=== PATIENT | female | born 1955 | race Caucasian/White ===

== ENCOUNTER → 2019-11-07 | Outpatient (CLI) | payer OTHER ==
--- NOTE | 2019-11-07 11:53 | DIREP ---
PROCEDURE:CT ABDOMEN/PELVIS W/ CONTRAST COMPARISON:None. INDICATIONS:RUQ ABD TENDERNESS TECHNIQUE:Axial images were created through the abdomen and pelvis with non-ionic intravenous contrast material. Oral contrast was administered. Sagittal and coronal reconstructions were performed from source images. FINDINGS: LUNG BASES:Normal. No visible pulmonary or pleural disease. LIVER:Normal. No significant liver lesions are identified. BILIARY:Normal. No visible dilatation or calcification. PANCREAS:Normal. No lesion, fluid collection, ductal dilatation, or atrophy. SPLEEN:Normal. No enlargement or focal lesion. ADRENALS:Normal. No mass or enlargement. URINARY TRACT:Posterior left renal cortical simple cyst measuring 1.9 cm. AORTA/VASCULAR:Normal. No aneurysm. RETROPERITONEUM:Normal. No mass or adenopathy. BOWEL/MESENTERY:Normal appendix. Moderate stool in the colon. ABDOMINAL WALL:Normal. No mass or hernia. PELVIC ORGANS:Normal. No visible mass. Pelvic organs appropriate for patient age. BONES:Normal for age. No bony lesion or acute fracture. OTHER:Negative. CONCLUSION: 1. Moderate stool in the colon, correlate for constipation. 2. Left renal simple cyst. Dictated by: Ras Mera M.D. on 11/07/2019 at 11:43 AM
== END | disposition home or self-care (01) ==
LOC: RAD 09:44
PROVIDERS: ATTEND Family Medicine
DX: R10.811 Right upper quadrant abdominal tenderness (principal); N28.1 Cyst of kidney, acquired
CPT/HCPCS: 74177; Q9965

== ENCOUNTER → 2020-03-09 | Outpatient (CLI) | payer OTHER ==
--- NOTE | 2020-03-09 13:19 | DIREP ---
PROCEDURE:US DUPLEX EXTREM VEINS UNILATER/LIMITED-LT COMPARISON:None. INDICATIONS:R/O DVT TECHNIQUE:The left lower extremity was evaluated utilizing hankins scale images with segmental compression, color Doppler, and spectral Doppler with respiratory variation and augmentation. FINDINGS: Common femoral vein:Patent Superficial femoral vein:Patent Popliteal vein:Patent Posterior tibial vein:Patent Peroneal vein: Patent SFJ: Patent Waveforms: Within normal limits. CONCLUSION:No evidence of deep venous thrombosis of the left lower extremity. Dictated by: Marshal Sears M.D. on 03/09/2020 at 01:15 PM
== END | disposition home or self-care (01) ==
LOC: RAD 12:30
PROVIDERS: ATTEND Nurse Practitioner Family
DX: M79.605 Pain in left leg (principal)
CPT/HCPCS: 93971

== ENCOUNTER → 2025-03-11 | Outpatient (CLI) | payer MEDICARE | END | disposition home or self-care (01) | LOC: RAD 12:30 | PROVIDERS: ATTEND Nurse Practitioner Family | DX: R19.09 Other intra-abdominal and pelvic swelling, mass and lump (principal) | CPT/HCPCS: 76705 ==